=== PATIENT | male | born 1950 | race Caucasian/White ===

== ENCOUNTER 2018-01-26 10:37 | Outpatient (CLI) | payer MEDICARE ==
--- NOTE | 2018-01-26 12:26 | RAD ---
PA AND LATERAL CHEST: Date: 01/26/18 COMPARISON: 11/24/16 study. FINDINGS: Heart size within normal limits. COPD type changes are again demonstrated. Nodular densities in both upper lobes are stable. IMPRESSION: Stable exam. POS: [facility]
== END 2018-01-26 10:38 | disposition home or self-care (01) ==
LOC: RAD 10:37
PROVIDERS: ATTEND Internal Medicine Pulmonary Disease
DX: R06.00 Dyspnea, unspecified (principal)
CPT/HCPCS: 71046

== ENCOUNTER 2018-08-28 00:47 | Observation (INO) | payer MEDICARE ==
[2018-08-28] MEDS ORDERED: methylPREDNISolone Sod Succ/PF 125 MG/2 ML VIAL ONE (01:41)
[2018-08-28] MEDS ORDERED: Sodium Chloride 0.9% 1,000 ML IV SCH ×2 (03:26→06:15)
[2018-08-28] MEDS ORDERED: Bacteriostatic Water 30 ML VIAL FS PRN (03:28)
[2018-08-28 03:38] VITALS: BMI 17.9
[2018-08-28] MEDS ORDERED: Ondansetron PF 4 MG/2 ML Vial IVP PRN (06:06)
[2018-08-28] MEDS ORDERED: Ondansetron ODT 4 MG TAB PO PRN (06:06)
[2018-08-28] MEDS ORDERED: [UNRECOGNIZED DRUG - REMARK] PO PRN (06:06)
[2018-08-28] MEDS ORDERED: Calcium Carbonate 500 MG ChewTAB PO PRN (06:06)
[2018-08-28] MEDS ORDERED: diphenhydrAMINE 25 MG CAP PO PRN (06:12)
--- NOTE | 2018-08-28 06:49 | HP ---
PRIMARY CARE PHYSICIAN: Dr. Ochoa. CHIEF COMPLAINT: Shortness of breath. HISTORY OF PRESENT ILLNESS: The patient is a 67-year-old male with COPD, presented to the emergency room with above complaints. Over the last 1 week, the patient developed gradually worsening shortness of breath along with chest tightness and wheezing. His symptoms progressively got worse. The shortness of breath was present on minimal exertion. The cough was productive of thick whitish phlegm. He denies any fever, chills, or night sweats. He follows with Dr. Rm at [facility]. He was evaluated by Dr. Ochoa 2 days ago and was started on Levaquin along with Mucinex without much relief. He then presented to the emergency room today. In the emergency room, his initial vital signs showed temperature of 98.7, respiration of 20, pulse rate of 88, blood pressure of 145/86 with O2 saturation of 91% on room air. He was in mild respiratory distress in the emergency room, able to complete short phrases. He was started on O2 supplementation. His chest x-ray in the emergency room showed increased bronchopulmonary marking at the right base. He received 2 g magnesium, albuterol, Rocephin, Toradol, IV fluid, and DuoNebs in the emergency room at [facility]. He was then transferred to this facility for hospital admission. PAST MEDICAL HISTORY: 1. COPD. 2. 40 pack-year smoking history, he quit in 2012. 3. He has been hospitalized in the past for pneumonia. 4. Benign prostatic hypertrophy. 5. Hyperlipidemia. PAST SURGICAL HISTORY: Reviewed with the patient and none. ALLERGIES: NO KNOWN DRUG ALLERGIES. CURRENT HOME MEDICATION: 1. Albuterol nebulization twice a day. 2. Symbicort 160/4.5 one puff b.i.d. 3. Benadryl 25 mg twice a day. 4. Mucinex daily. 5. Zocor 5 mg at bedtime. 6. Flomax 0.4 mg daily. 7. Spiriva 18 mcg daily. SOCIAL HISTORY: As discussed above. He drinks alcohol socially. Denies any drug abuse. He makes his own decision with the help of his family. He is full code. FAMILY HISTORY: Mother of some lung problems. Father diagnosed with a cancer. Details unavailable. REVIEW OF SYSTEMS: The patient denies any other new complaints. All other review of systems were reviewed and were found negative. PHYSICAL EXAMINATION: VITAL SIGNS: As discussed above. GENERAL: A 67-year-old male in mild respiratory distress, able to complete short phrases. HEENT: Head; atraumatic, normocephalic. Sclerae anicteric. Moist mucous membrane. No oral lesion. NECK: Supple. No JVD appreciated. No carotid bruit. LUNGS: Showed minimal accessory muscle use with bilateral rhonchi and scattered wheezing. There were few rales at right bases. HEART: S1 and S2 present. Regular rate and rhythm. No heaves or pulsation. No significant murmurs appreciated. ABDOMEN: Soft, nontender. Bowel sounds present. No rebound or guarding. EXTREMITIES: No edema or calf tenderness. NEUROLOGY: Grossly nonfocal. Moves all 4 extremities. PSYCHIATRY: Alert, awake, oriented x3. SKIN: Warm and dry. LYMPH NODES: No palpable lymph nodes in the neck. PERIPHERAL VASCULAR: Radial pulses palpable bilaterally. MUSCULOSKELETAL: No joint swelling or tenderness. LABORATORY FINDINGS: WBC 11.2, hemoglobin 14.4, hematocrit 43.3, platelet 187. Chemistry showed sodium 131, potassium 4.2, chloride 97, bicarb 24, BUN 9, creatinine 0.78. Troponin was negative. BNP 40.3. Lactic acid 1.5. IMAGING STUDIES: Chest x-ray by my review as discussed above. IMPRESSION: 1. Chronic obstructive pulmonary disease exacerbation. 2. Hyponatremia, sodium 131. 3. Benign prostatic hypertrophy. 4. Former smoker. The patient has 40-pack year smoking history. 5. Hyperlipidemia. PLAN: The patient will be monitored as a 23-hour observation. We will continue nebulizer treatment every 4 hourly. We will add IV steroids. We will continue ceftriaxone. We will add azithromycin. Continue Symbicort and Spiriva. We will resume Flomax and statins. We will recheck labs in a.m. Plan of care was discussed with the patient in detail, he stated understanding. Job ID: [id number]
[2018-08-28] MEDS: Mometasone/Formoterol 120 PUFF INHALER INH SCH ×2 (07:36→19:03)
[2018-08-28] MEDS: Cefdinir 300 MG CAP PO SCH ×2 (07:58→20:05)
[2018-08-28] MEDS: methylPREDNISolone Sod Succ/PF 125 MG/2 ML VIAL IVP SCH ×3 (07:58→20:04)
[2018-08-28] MEDS: Tamsulosin HCl 0.4 MG CAP PO SCH (07:59)
[2018-08-28] MEDS: Saccharomyces boulardii 250 MG CAP PO SCH (07:59)
[2018-08-28] MEDS: guaiFENesin ER 600 MG TAB PO SCH ×2 (07:59→20:05)
[2018-08-28] MEDS: Famotidine 20 MG TAB PO SCH ×2 (07:59→20:05)
[2018-08-28] MEDS: Doxycycline 100 MG CAP PO SCH ×2 (07:59→20:05)
[2018-08-28] MEDS ORDERED: methylPREDNISolone Sod Succ/PF 125 MG/2 ML VIAL IVP SCH (08:00)
[2018-08-28] MEDS ORDERED: Spiriva 18 MCG CAP (Box of 5 Caps) INH SCH (09:00)
[2018-08-28] MEDS ORDERED: Non-Formulary Item 1 EACH (Budesonide-Formoterol [Symbicort 160-4.5] 1 PUFF) INH SCH (09:00)
--- NOTE | 2018-08-28 14:17 | PDOC.EVN ---
Event Note - Event Note Event Note: Pt seen and examined. Chart reviewed. feels a little bettter in terms of breathing. minimal wheezing on exam RRR reports daily symptoms that are not controlled by Nebs every 6 hrs among other meds Radiologic Technology Instructor is Dr. Rm at [facility]. Will cont Rx for Ac COPD for now as mentioned in H&P. Pt encouraged to discuss advanced treatments including biologics with his PCCM for poorly controlled symptoms. HD stable Will follow. Betty Eduardo in next 24 hours if better
[2018-08-28] MEDS ORDERED: Nicotine 14 MG PATCH TOP SCH (18:30)
[2018-08-28] MEDS ORDERED: traZODone HCl 50 MG TAB PO PRN (18:53)
[2018-08-28] MEDS ORDERED: Melatonin 3 MG TAB PO PRN (18:53)
[2018-08-28] MEDS ORDERED: Simvastatin 5 MG TAB PO SCH (21:00)
[2018-08-29] MEDS: methylPREDNISolone Sod Succ/PF 125 MG/2 ML VIAL IVP SCH ×2 (00:58→08:36)
[2018-08-29 03:56] VITALS: TEMP 97.5
[2018-08-29 06:29] LABS: #Lymphocytes 0.7 thou/uL (1.20-3.40); #Monocytes 0.3 thou/uL (0.11-0.59); %Basophils 0.1 % (0.0-1.0); %Eosinophils 0.1 % (0.0-10.0); %Monocytes 3.1 % (0.0-10.0); %Neutrophils 89.8 % (42.0-75.0); Hemoglobin 13.4 g/dL (14.0-18.0); Mean Corpuscular HGB CONC 33.3 g/dL (32.0-36.0); Mean Corpuscular Hemoglobin 33.4 pg (27.0-31.0); Platelet Count 219 thou/uL (130-400); RBC Distribution Width 11.2 % (11.5-14.5); Red Blood Cell (RBC) Count 4.03 mill/uL (4.70-6.10); White Blood Cell (WBC) Count 10.1 thou/uL (4.8-10.8)
[2018-08-29 06:47] LABS: Anion Gap 13 mmol/L (10-20); BUN (Urea Nitrogen) 10 mg/dL (8.4-25.7); Calc. Creatinine Clearance 80 mL/min (70-130); Calcium 8.8 mg/dL (7.8-10.44); Carbon Dioxide 25 mmol/L (23-31); Chloride 102 mmol/L (98-107); Estimated GFR-MDRD Greater than 90; Glucose 150 mg/dL (80-115); Potassium 3.9 mmol/L (3.5-5.1); Sodium 136 mmol/L (136-145)
[2018-08-29] MEDS: Mometasone/Formoterol 120 PUFF INHALER INH SCH (06:56)
[2018-08-29 07:59] VITALS: BP 124/74
[2018-08-29] MEDS: Cefdinir 300 MG CAP PO SCH (08:35)
[2018-08-29] MEDS: Tamsulosin HCl 0.4 MG CAP PO SCH (08:36)
[2018-08-29] MEDS: guaiFENesin ER 600 MG TAB PO SCH (08:36)
[2018-08-29] MEDS: Saccharomyces boulardii 250 MG CAP PO SCH (08:36)
[2018-08-29] MEDS: Famotidine 20 MG TAB PO SCH (08:36)
[2018-08-29] MEDS: Doxycycline 100 MG CAP PO SCH (08:36)
--- NOTE | 2018-08-29 17:17 | DIS ---
DATE OF ADMISSION: 08/28/2018 DATE OF DISCHARGE: 08/29/2018 DISCHARGE DISPOSITION: Home. PRIMARY CARE PHYSICIAN: Dimitri Ochoa MD PRIMARY MANAGER ACADEMIC: Dr. Rm at [facility]. DISCHARGE DIAGNOSES: 1. Acute chronic obstructive pulmonary disease exacerbation with bronchitis. 2. Longstanding history of tobacco abuse. Quit in 2012. 3. History of benign prostatic hyperplasia. 4. Dyslipidemia. DISCHARGE MEDICATIONS: Resume home medications as per the HPI. Please see HPI dictated by Dr. Cano on 08/28/2018. No changes were made in the home medications. In the medication, new medications as follows; 1. Nicotine patch 14 mg daily. 2. Florastor 250 mg daily. 3. Medrol Dosepak as directed. 4. Mucinex p.r.n. 5. The patient will resume the levofloxacin as prescribed by Dr. Ochoa in the outpatient setting at 750 mg p.o. daily for next 5 days. HISTORY OF PRESENTING ILLNESS: Mr. Ca is a pleasant 67-year-old male with past medical history of severe COPD, but not requiring home oxygen as well as history of BPH and hypertension, who follows up with Dr. Rm in the outpatient setting for pulmonary Medicine, came to the hospital with complaints of worsening shortness of breath. Upon presentation, he was not hypoxic. His oxygen saturations were 91% on room air. Chest x-ray did not show any evidence of pneumonia. He received magnesium, albuterol, Rocephin, Toradol, IV fluids, and nebulizer in the [facility] and was transferred to our facility for admission. He was diagnosed with having acute COPD exacerbation with bronchitis and was admitted under observation status. Please see admission history and physical dictated by Dr. Cano from 08/28/2018, for further details. HOSPITAL COURSE: The patient had significant improvement in his symptoms overnight. He was treated with IV steroids, empiric antibiotics, and nebulizers in the hospital along with continuation of his home medications. This morning, he is back to his baseline and will be discharged. He was seen and examined prior to discharge. PHYSICAL EXAMINATION: VITAL SIGNS: This morning, vital signs; temperature 97.5, pulse of 91, respirations 16, saturating 92% to 97% on room air, and blood pressure 127/74. CHEST: Negative for any wheezing, but he has very reduced breath sounds bilaterally consistent with severe longstanding COPD. HEART: Rhythm is regular without any murmurs, rubs, or gallops. Mr. 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 He also likes to mow his grass. He reports that sometimes he wears the mask when he is working with all of this, but he gets too hot and does not wear the mask. As a result, by the end of the morning, he is feeling very short of breath and afternoon, he has been using his nebulizers without any benefit. I educated him about the allergens making his symptoms worse and he is strongly instructed to not engage in any work involving the sawdust, welding, or grass cutting. He is to avoid all these activities that include allergens that will make his symptoms worse. If he is absolutely needing to do anything like that: He is encouraged to wear a mask. He is also encouraged to discuss newer medications or long-term steroids with his primary senior oracle soa developer, who is in the process of addressing his lung capacity and getting some outpatient workup done. He understood the plan. At this time, he will be discharged back home. He will resume his levofloxacin that was prescribed by Dr. Ochoa in the outpatient setting two days ago. Otherwise, medications as above. Job ID: [id number]
== END 2018-08-29 11:27 | disposition home or self-care (01) ==
LOC: ERS 00:47 → 2SW 03:07
PROVIDERS: ADMIT Internal Medicine; ATTEND Internal Medicine
DX: J44.1 Chronic obstructive pulmonary disease with (acute) exacerbation (principal); E87.1 Hypo-osmolality and hyponatremia; N40.0 Benign prostatic hyperplasia without lower urinary tract symptoms; E78.5 Hyperlipidemia, unspecified; Z87.891 Personal history of nicotine dependence; Z79.2 Long term (current) use of antibiotics; Z79.51 Long term (current) use of inhaled steroids; Z79.899 Other long term (current) drug therapy
CPT/HCPCS: 80048; 85025; 94640 ×5; 96361; 96374; 96376 ×2; 97139; 99285; G0378 ×2; 36415; J2930; J7620

== ENCOUNTER 2018-10-13 06:47 | Inpatient (IN) | payer MEDICARE ==
[2018-10-13 07:14] LABS: #Lymphocytes 1.2 thou/uL (1.20-3.40); #Monocytes 0.9 thou/uL (0.11-0.59); #Neutrophils 9.1 thou/uL (1.40-6.50); %Basophils 0.4 % (0.0-1.0); %Eosinophils 0.4 % (0.0-10.0); %Lymphocytes 10.4 % (21.0-51.0); %Monocytes 7.7 % (0.0-10.0); %Neutrophils 81.1 % (42.0-75.0); Hemoglobin 14.8 g/dL (14.0-18.0); Mean Corpuscular HGB CONC 33.4 g/dL (32.0-36.0); Mean Corpuscular Hemoglobin 33.6 pg (27.0-31.0); Mean Platelet Volume 6.7 fL (7.4-10.4); Platelet Count 203 thou/uL (130-400); RBC Distribution Width 11.8 % (11.5-14.5); Red Blood Cell (RBC) Count 4.39 mill/uL (4.70-6.10); White Blood Cell (WBC) Count 11.2 thou/uL (4.8-10.8)
[2018-10-13] MEDS ORDERED: methylPREDNISolone Sod Succ/PF 125 MG/2 ML VIAL ONE (07:27)
[2018-10-13 07:38] LABS: ALT (SGPT) 17 U/L (8-55); AST (SGOT) 17 U/L (5-34); Albumin 4.2 g/dL (3.4-4.8); Alkaline Phosphatase 66 U/L (40-150); Anion Gap 12 mmol/L (10-20); BUN (Urea Nitrogen) 9 mg/dL (8.4-25.7); Bilirubin, Total 0.5 mg/dL (0.2-1.2); Calc. Creatinine Clearance 0 mL/min (70-130); Calcium 9.1 mg/dL (7.8-10.44); Carbon Dioxide 27 mmol/L (23-31); Chloride 100 mmol/L (98-107); Estimated GFR-MDRD Greater than 90; Globulin 2.4 g/dL (2.4-3.5); Glucose 124 mg/dL (80-115); Potassium 4.4 mmol/L (3.5-5.1); Protein, Total 6.6 g/dL (5.8-8.1); Sodium 135 mmol/L (136-145)
[2018-10-13] MEDS ORDERED: Sodium Chloride 0.9% 1,000 ML IV SCH (07:45)
[2018-10-13 07:59] LABS: CKMB 4.5 ng/mL (0-6.6)
--- NOTE | 2018-10-13 08:16 | RAD ---
SINGLE VIEW OF THE CHEST: COMPARISON: 10/12/2018. HISTORY: Dyspnea. FINDINGS: A single view of the chest shows a normal-size cardiomediastinal silhouette. Hyperexpansion of the l ungs is consistent with COPD. A calcified granuloma projects over the left upper lobe. No consolida tion or pleural effusion are seen. IMPRESSION: 1. No evidence of acute cardiopulmonary disease. 2. Chronic obstructive pulmonary disease. POS: [facility]
[2018-10-13 10:35] LABS: Troponin I 0.195 ng/mL (< 0.028)
[2018-10-13] MEDS ORDERED: PROVENTIL INHALER 6.7 G (200 INHALATIONS) INH PRN (13:30)
[2018-10-13] MEDS ORDERED: Acetaminophen 325 MG TAB PO PRN (13:30)
[2018-10-13] MEDS ORDERED: methylPREDNISolone Sod Succ/PF 125 MG/2 ML VIAL IVPB SCH (13:45)
[2018-10-13 14:16] LABS: Troponin I 0.317 ng/mL (< 0.028)
[2018-10-13] MEDS ORDERED: Nitroglycerin 0.4 MG TAB (25 Tab Bottle) PO PRN (14:24)
[2018-10-13] MEDS ORDERED: Calcium Carbonate 500 MG ChewTAB PO PRN (14:25)
[2018-10-13] MEDS ORDERED: Ondansetron ODT 4 MG TAB PO PRN (14:25)
[2018-10-13] MEDS ORDERED: Ondansetron PF 4 MG/2 ML Vial IVP PRN (14:25)
[2018-10-13] MEDS ORDERED: Cefepime 1 GM in Sodium Chloride 0.9% 100 ML IVPB SCH (14:30)
--- NOTE | 2018-10-13 15:36 | HP ---
PRIMARY CARE PHYSICIAN: Dr. Ochoa. Primary beverage server at [facility]. CHIEF COMPLAINT: Shortness of breath. HISTORY OF PRESENT ILLNESS: The patient is a 67-year-old white male with COPD and [id number] smoking in the past, presented to the hospital with shortness of breath. Over the last 7 to 10 days, the patient developed gradual worsening shortness of breath along with chest tightness, and wheezing. He was short of breath on minimal exertion. He also had cough, which was essentially dry. No fever or chills reported. He denies any sick contacts. He was recently evaluated by his primary care physician and was started on prednisone. He was also instructed to increase the dose of prednisone if his symptoms does not improve. The patient increased his prednisone dose from 10 mg daily to 20 mg daily without significant improvement. He was also seen in the emergency room 2 days ago for similar complaints. He received 60 mg oral prednisone along with nebulizer treatment and was discharged home on prednisone taper along with azithromycin. His symptoms progressively got worse, for which he presented to the emergency room. PAST MEDICAL HISTORY: 1. COPD. 2. 75-qslk-fozb smoking. The patient quit smoking in 2004. 3. History of pneumonia. 4. Benign prostatic hypertrophy. 5. Hyperlipidemia. PAST SURGICAL HISTORY: Reviewed with the patient and none. ALLERGIES: NO KNOWN DRUG ALLERGIES. CURRENT HOME MEDICATIONS: 1. Flomax 0.4 mg q.h.s. 2. Spiriva 2.5 mcg daily. 3. Zocor 20 mg q.h.s. 4. Prednisone taper. 5. Mucinex q.h.s. 6. Benadryl 25 mg b.i.d. 7. Symbicort 160/4.5 b.i.d. 8. Albuterol as needed. SOCIAL HISTORY: The patient is a former smoker, quit smoking in 2012. He used to smoke 1 to 2 packs in the past. He drinks alcohol socially. He makes his own decision with the help of his spouse. He is full code. FAMILY HISTORY: Mother of some lung problem. Father also diagnosed with some kind of malignancy. REVIEW OF SYSTEMS: The patient denies any nausea, vomiting, fever, or chills. All other review of systems was reviewed and was found negative. PHYSICAL EXAMINATION: VITAL SIGNS: Temperature 97.9, respirations of 20, pulse rate of 137, blood pressure of 160/117 with O2 saturation of 93% on room air. GENERAL: A 67-year-old man, in mild respiratory distress, able to complete short phrases. HEENT: Head; atraumatic, normocephalic. Sclerae anicteric. Dry mucous membranes. No oral lesion. NECK: Supple. No JVD. No carotid bruit. LUNGS: Show mild expiratory wheezing without significant rhonchi or rales. Mild accessory muscle use. HEART: S1 and S2 present. Regular rate and rhythm. No heaves or pulsation. No significant murmurs. ABDOMEN: Soft, nontender. Bowel sounds present. No rebound or guarding. EXTREMITIES: No edema or calf tenderness. NEUROLOGIC: Grossly nonfocal. Moves all 4 extremities. PSYCHIATRY: Alert, awake, oriented x3. SKIN: Warm and dry. LYMPH NODES: No palpable lymph nodes in the neck. PERIPHERAL VASCULAR: Radial pulses palpable bilaterally. MUSCULOSKELETAL: No joint swelling or tenderness. LABORATORY FINDINGS: WBC of 11.2 with hemoglobin 14.8, hematocrit 44.3, platelet count of 203. VBG showed pH of 7.43 with pO2 of 88.1, pCO2 of 38.4. Troponin of 0.31. Sodium 135, creatinine 0.72 with BUN of 9. BNP was 39.4. IMAGING STUDIES: Chest x-ray by my review was negative for infiltrate. EKG by my review showed sinus tachycardia with PVCs. IMPRESSION: 1. Acute hypoxic respiratory failure secondary to chronic obstructive pulmonary disease exacerbation. 2. Former smoker. 3. Benign prostatic hypertrophy. 4. Hyperlipidemia. 5. Macrocytosis. 6. Type 2 myocardial infarction/demand ischemia. 7. Mild hyponatremia. PLAN: The patient will be monitored on the telemetry unit. We will continue O2 supplementation along with steroids. We will add IV cefepime along with azithromycin. Echocardiogram will be obtained for elevated troponins. He probably has demand ischemia from hypoxemia along with significant tachycardia. Selected medications will be resumed. We will recheck troponin in a.m. Echocardiogram will be obtained. We will get input from Cardiology and Pulmonology. Recheck a.m. labs. Plan of care was discussed with the patient in detail. He stated understanding. Job ID: [id number]
[2018-10-13] MEDS ORDERED: Diabetic Tussin 200 MG/10 ML UDCUP PO PRN (16:00)
[2018-10-13] MEDS ORDERED: Furosemide 20 MG/2 ML VIAL SLOW IVP SCH (16:00)
[2018-10-13] MEDS ORDERED: methylPREDNISolone Sod Succ 40 MG VIAL IVP SCH ×2 (16:00→20:00)
[2018-10-13] MEDS: Azithromycin 500 MG in Sodium Chloride 0.9% 250 ML 250 ML IVPB SCH (17:39)
[2018-10-13] MEDS ORDERED: Mometasone/Formoterol 120 PUFF INHALER INH SCH (18:30)
--- NOTE | 2018-10-13 18:38 | CON ---
DATE OF CONSULTATION: 10/13/2018 REASON FOR CONSULTATION: Elevated troponins. HISTORY OF PRESENT ILLNESS: Mr. Ca is a very pleasant 67-year-old white gentleman, who comes to the hospital for shortness of breath. He has a history of significantly advanced COPD. He was in the hospital about a month ago for COPD exacerbation. He started feeling short of breath about 2 days ago, came into the ER, was given azithromycin and prednisone, but it did not improve his symptoms, so he came back and was admitted for further evaluation. He has been started on pulmonary toilet including higher dose steroids and IV antibiotics. Troponins were drawn, they were mildly positive, so Cardiology has been consulted for this. On my evaluation, Mr. Ca denies any chest pain, tightness, or pressure. He states that he has been coughing a lot more recently like he usually does when he gets an exacerbation. He also gets some tightness every time he gets a COPD exacerbation and this time it has been no different. PAST MEDICAL HISTORY: 1. COPD as above. 2. Multiple pneumonias in the past. 3. BPH. 4. Hyperlipidemia. SURGICAL HISTORY: None. OUTPATIENT MEDICATIONS: 1. Flomax 0.4 mg q.h.s. 2. Spiriva. 3. Zocor 20 mg q.h.s. 4. Prednisone taper in the past. 5. Mucinex. 6. Benadryl. 7. Symbicort. 8. Albuterol as needed. ALLERGIES: NO KNOWN DRUG ALLERGIES. SOCIAL HISTORY: Quit smoking in 2012, two packs a day before that. Social alcohol use. No drug use. FAMILY HISTORY: No early coronary artery disease. REVIEW OF SYSTEMS: A 12-point review of systems was done and was all negative unless stated in history of present illness. PHYSICAL EXAMINATION: VITAL SIGNS: Temperature 97.6, pulse 94, respiratory rate 16, saturating 96% on 1 L, and blood pressure 119/84. GENERAL: Awake, alert, and oriented x3. No distress. HEENT: Normocephalic and atraumatic. NECK: Supple. LUNGS: Reduced breath sounds bilaterally. CARDIOVASCULAR: Distant heart sounds, S1 and S2. There is a grade 2/6 systolic murmur at the right upper sternal border. ABDOMEN: Soft. EXTREMITIES: No edema. SKIN: Warm and dry. LABORATORY DATA: Laboratory work was reviewed. CBC with a white count of 11, hemoglobin of 14, hematocrit of 44, platelet count of 203. Chemistry was reviewed, unremarkable. Troponin is 0.03, then 0.19, and 0.31. BNP was 61. EKG was reviewed. Chest x-ray was reviewed. ASSESSMENT AND PLAN: 1. Chronic obstructive pulmonary disease with acute exacerbation. 2. Type 2 World Health [employer] type of myocardial infarction, demand ischemia most likely. PLAN: 1. We will do echocardiogram. 2. We will continue to trend troponins. 3. Currently, he is unable to lie flat, so even if we wanted to do a heart catheterization or even a stress test, he would be unable to as he is chronically short of breath every time he lies down. At this time, we will do conservative management for now. 4. Most likely he will need home O2 when he leaves. Thank you for letting me participate in the care of your patient. We will follow. Job ID: [id number]
[2018-10-13] MEDS ORDERED: Senokot S 8.6-50 MG TAB PO PRN (21:00)
[2018-10-13] MEDS ORDERED: Non-Formulary Item 1 EACH (Budesonide-Formoterol [Symbicort 160-4.5] 1 PUFF) INH SCH (21:00)
[2018-10-13] MEDS ORDERED: [UNRECOGNIZED DRUG - REMARK] PO SCH (21:00)
[2018-10-13] MEDS: Tamsulosin HCl 0.4 MG CAP PO SCH (21:02)
[2018-10-13] MEDS: Famotidine 20 MG TAB PO SCH (21:02)
[2018-10-13] MEDS: guaiFENesin ER 600 MG TAB PO SCH (21:02)
[2018-10-13] MEDS: Atorvastatin Calcium 10 MG TAB PO SCH (21:03)
[2018-10-13] MEDS: diphenhydrAMINE 25 MG CAP PO PRN (21:06)
[2018-10-13] MEDS: ALPRAZolam 0.25 MG TAB PO PRN (21:06)
[2018-10-14] MEDS: methylPREDNISolone Sod Succ 40 MG VIAL IVP SCH ×2 (02:17→13:34)
[2018-10-14 05:04] LABS: Anion Gap 15 mmol/L (10-20); BUN (Urea Nitrogen) 12 mg/dL (8.4-25.7); Calc. Creatinine Clearance 82 mL/min (70-130); Calcium 8.7 mg/dL (7.8-10.44); Carbon Dioxide 25 mmol/L (23-31); Chloride 99 mmol/L (98-107); Estimated GFR-MDRD Greater than 90; Glucose 122 mg/dL (80-115); Magnesium 2.4 mg/dL (1.6-2.6); Potassium 3.7 mmol/L (3.5-5.1); Sodium 135 mmol/L (136-145)
[2018-10-14 05:34] LABS: CKMB 10.3 ng/mL (0-6.6)
[2018-10-14] MEDS ORDERED: Spiriva 18 MCG CAP (Box of 5 Caps) INH SCH (09:00)
[2018-10-14] MEDS ORDERED: Furosemide 20 MG/2 ML VIAL SLOW IVP SCH (09:00)
[2018-10-14] MEDS: Saccharomyces boulardii 250 MG CAP PO SCH (09:20)
[2018-10-14] MEDS: Aspirin 325 mg Enteric Coated Tablet PO SCH (09:20)
[2018-10-14] MEDS: Famotidine 20 MG TAB PO SCH ×2 (09:21→20:04)
[2018-10-14] MEDS: guaiFENesin ER 600 MG TAB PO SCH ×2 (09:21→20:04)
--- NOTE | 2018-10-14 11:33 | CON ---
DATE OF CONSULTATION: 10/13/2018 SERVICE: Pulmonary Medicine. REASON FOR CONSULT: COPD exacerbation. HISTORY OF PRESENT ILLNESS: The patient is a very pleasant 67-year-old white male with past medical history significant for very advanced COPD. He has a 25% FEV1 at baseline. He was in his usual state of health until about 1 week prior to presentation when he started having increasing dyspnea with exertion, cough without any significant sputum production. This was slowly progressive over the last week. Last night at 3 o'clock in the morning, he woke up with severe shortness of breath. He could not catch his air and subsequently came to the Emergency Department. Over the last couple of days, he was put on some steroids, but they were ineffective at preventing this exacerbation from occurring. Since he has been here, he got a dose of steroids, nebulized medications, and was initiated on some antibiotics. He is starting to breathe a little bit better. He does not use oxygen at home, but is like getting close to needing it. He is requiring oxygen at this point, because of acute hypoxic failure. PAST MEDICAL HISTORY: 1. COPD, severe. 2. BPH. 3. Dyslipidemia. PAST SURGICAL HISTORY: None. SOCIAL HISTORY: Negative currently for tobacco, alcohol, or illicit drug use. He has a greater than 50-pack year history of smoking. 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 He also had exposure to multiple different types of dust as well as asbestos. He has no exposure to tuberculosis or chemicals that he is aware of. FAMILY HISTORY: Noncontributory. ALLERGIES: NO KNOWN DRUG ALLERGIES. MEDICATIONS: List of his inpatient medications was reviewed. Multiple updates were made at this time. REVIEW OF SYSTEMS: Genera, head, ears, eyes, nose, throat, cardiovascular, respiratory, GI, , musculoskeletal, neurologic, and skin is negative except as mentioned in the HPI. PHYSICAL EXAMINATION: VITAL SIGNS: Afebrile, pulse 94, blood pressure 111/74, respirations 15, and saturation 98% on 1 L nasal cannula. GENERAL: The patient is awake and alert, in no apparent distress. LUNGS: Excellent air entry. There is a prolonged expiratory phase. I do not appreciate any wheezing on tidal respiration, but there is some wheezing on forced exhalation. Crackles are present bibasilarly. HEART: Normal rate, regular. ABDOMEN: Soft, nontender, nondistended. Bowel sounds are positive. MUSCULOSKELETAL: No cyanosis or clubbing. No pitting in the bilateral lower extremities. NEUROLOGIC: Grossly nonfocal. LABORATORY DATA: WBC 11.2, hemoglobin 14.3 and stable, platelets 203,000. PH 7.4, pCO2 38, pO2 88. Troponin is up trending to 0.317. Basic metabolic profile and liver function studies are otherwise unremarkable. BNP 62. IMAGING: Chest x-ray demonstrates no acute cardiopulmonary abnormality. Significant hyperexpansion of bilateral lung martinez is evident. ASSESSMENT: 1. Acute hypoxic respiratory failure. 2. Chronic obstructive pulmonary disease with acute exacerbation. 3. Mej-OG-egusriwsc myocardial infarction. 4. Obstructive sleep apnea, requiring continuous positive airway pressure at 11 cm of water. DISCUSSION AND PLAN: The patient is doing fine from a respiratory standpoint. We will continue nebulized medications, steroids, and antibiotics. I will give him a single dose of Lasix today and tomorrow morning as he is minimally volume overloaded clinically. Agree with Cardiology consultation for the non ST-elevation myocardial infarction. The COPD exacerbation is relatively mild and I would be surprised, if this degree of respiratory failure puts a significant degree of stress on the heart to cause a demand ischemia. Methylprednisolone will be dropped to twice daily. Other inhalers and nebulized medications will be continued. Cefepime will be interrupted. He can have a 5-day course of azithromycin. 70 minutes have been devoted to this patient in various activities. I personally reviewed all imaging studies and laboratory data noted within this document. For fifty percent of this time, I was interacting with the patient at the bedside or coordinating care with the care team. For the remainder of the time I was immediately available to the patient in the hospital unit. Job ID: [id number] MTDD
--- NOTE | 2018-10-14 11:35 | PRG ---
DATE OF SERVICE: 10/14/2018 SUBJECTIVE: He is doing better this morning, less short of breath, less cough. OBJECTIVE: VITAL SIGNS: Sats are 99% on 1 L, respiratory rate 14, temperature 97, and blood pressure 111/67. CHEST: Decreased breath sounds. No wheezing. CARDIAC: Normal S1 and S2. No gallops. ABDOMEN: Soft. IMPRESSION: Chronic obstructive pulmonary disease exacerbation and bronchitis. PLAN: Continue present treatment. PT, supportive care, antibiotics. We will follow. Job ID: [id number]
[2018-10-14] MEDS: Azithromycin 500 MG in Sodium Chloride 0.9% 250 ML 250 ML IVPB SCH (16:01)
--- NOTE | 2018-10-14 18:57 | PDOC.CTH ---
Cardiology Progress Note - Subjective Breathing is better. No chest pain. - Objective Vital Signs Temp Pulse Resp BP Pulse Ox 10/14/18 15:57 97.7 F 100 16 123/71 95 10/14/18 14:45 88 16 95 10/14/18 11:57 97.5 F L 92 14 109/67 95 10/14/18 10:47 93 20 95 10/14/18 08:00 94 L 10/14/18 07:45 97.6 F 94 14 111/67 99 10/14/18 07:29 98 10/14/18 07:27 95 20 98 Admit Weight 125 lb 4.8 oz Weight 125 lb 4.8 oz 10/13/18 10/14/18 10/15/18 06:59 06:59 06:59 Intake Total 560 Output Total 1725 Balance -1165 - Physical Examination General/Neuro: alert & oriented x3, NAD Neck: no JVD present Lungs: unlabored respirations Heart: RRR Abdomen: NT/ND Extremities: other: (no edema) - Telemetry Telemetry Rhythm: NSR - Labs Result Diagrams: 10/13/18 07:05 10/14/18 04:05 Troponin/CKMB CK-MB (CK-2) 10.3 ng/mL (0-6.6) H* 10/14/18 04:05 Troponin I 0.341 ng/mL (< 0.028) H* 10/14/18 04:05 - Assessment/Plan 1. COPD with acute exacerbation. 2. NSTEMI, possible type 2 AK. 3. Bronchitis. 4. Mild LV dysfunction PLAN: - Continue conservative therapy for now. He is not having chest pain and symptoms improving with pulmonary therapies. - EF at 45-50%, images not great on echo. - Currently unable to lay lower than 45 degrees without SOB. He states he is almost never able to lay flat on his back due to SOB so he would not be able to tolerate any invasive cardiac interventions. - No BB due to COPD. - BP borderline low to add ACEI.
--- NOTE | 2018-10-14 19:18 | PDOC.PN ---
- Subjective Encounter Start Date: 10/14/18 Encounter Start Time: 19:18 Patient seen and examined for COPD flare with Type 2 CO. No CP. SOB improving. Dry cough +. No other complaints. No overnight events - Objective Resuscitation Status - Order Detail: 10/13/18 14:25 Resuscitation Status Routine Resuscitation Status: FULL: Full Resuscitation MAR Reviewed: Yes Vital Signs & Weight: Vital Signs (12 hours) Temp Pulse Resp BP Pulse Ox 10/14/18 15:57 97.7 F 100 16 123/71 95 10/14/18 14:45 88 16 95 10/14/18 11:57 97.5 F L 92 14 109/67 95 10/14/18 10:47 93 20 95 10/14/18 08:00 94 L 10/14/18 07:45 97.6 F 94 14 111/67 99 10/14/18 07:29 98 10/14/18 07:27 95 20 98 Weight Admit Weight 125 lb 4.8 oz Weight 125 lb 4.8 oz I&O: 10/13/18 10/14/18 10/15/18 06:59 06:59 06:59 Intake Total 560 Output Total 1725 Balance -1165 Result Diagrams: 10/13/18 07:05 10/14/18 04:05 EKG Reviewed by me: Yes (Tele SR) Phys Exam - Physical Examination Pt in mild resp distress Respiratory: wheezing present Scat rhonchi Cardiovascular: RRR, no rub Gastrointestinal: soft, non-tender, positive bowel sounds Musculoskeletal: no edema Neurological: moves all 4 limbs Dx/Plan - Plan DVT proph w/SCDs (Patient declined Lovenox) IMPRESSION: 1. Acute hypoxic respiratory failure secondary to COPD exacerbation. 2. Type 2 myocardial infarction/demand ischemia. 3. Benign prostatic hypertrophy. 4. Hyperlipidemia. 5. Macrocytosis. 6. Former smoker. 7. Mild hyponatremia. PLAN: Cont Nebs with O2 supp Cont Azithromycin Cont IV Steroids On ASA Echo reviewed - EF 45-50 with diastolic dysfunction Treat constipation Review of Systems - Review of Systems Cardiovascular: negative: chest pain, palpitations, orthopnea, paroxysmal nocturnal dyspnea, edema, light headedness, other Gastrointestinal: Constipation. negative: Nausea, Vomiting, Abdominal Pain, Diarrhea, Melena, Hematochezia, Other - Medications/Allergies Allergies/Adverse Reactions: Allergies Allergy/AdvReac Type Severity Reaction Status Date / Time No Known Drug Allergies Allergy Verified 10/13/18 11:59 Medications: Current Medications Acetaminophen (Tylenol) 650 mg PO Q4H PRN PRN Reason: Headache/Fever or Mild Pain Albuterol Sulfate (Proventil Hfa) 2 puff INH Q2H PRN PRN Reason: SOB &/or Wheezing Albuterol/Ipratropium (Duoneb) 3 ml NEB [id number] [facility] Last Admin: 10/14/18 14:45 Dose: 3 ml Alprazolam (Xanax) 0.25 mg PO BIDPRN PRN PRN Reason: Anxiety Last Admin: 10/13/18 21:06 Dose: 0.25 mg Aspirin (Ecotrin) 325 mg PO DAILY [facility] Last Admin: 10/14/18 09:20 Dose: 325 mg Atorvastatin Calcium (Lipitor) 10 mg PO HS [facility] Last Admin: 10/13/18 21:03 Dose: 10 mg Calcium Carbonate (Tums) 1,000 mg PO Q4H PRN PRN Reason: Heartburn or Indigestion Diphenhydramine HCl (Benadryl) 25 mg PO Q6H PRN PRN Reason: Itching & Insomnia Last Admin: 10/13/18 21:06 Dose: 25 mg Famotidine (Pepcid) 20 mg PO BID [facility] Last Admin: 10/14/18 09:21 Dose: 20 mg Guaifenesin (Mucinex) 600 mg PO Q12HR [facility] Last Admin: 10/14/18 09:21 Dose: 600 mg Guaifenesin (Robitussin Sf) 200 mg PO Q4H PRN PRN Reason: Cough Azithromycin 500 mg/ Sodium (Chloride) 250 mls @ 250 mls/hr IVPB Q24HR [facility] Last Admin: 10/14/18 16:01 Dose: 250 mls Methylprednisolone Sodium Succinate (Solu-Medrol) 40 mg IVP 0200,1400 [facility] Last Admin: 10/14/18 13:34 Dose: 40 mg Nitroglycerin (Nitrostat) 0.4 mg PO Q5MIN PRN PRN Reason: Chest Pain Ondansetron HCl (Zofran Odt) 4 mg PO Q6H PRN PRN Reason: Nausea/Vomiting Ondansetron HCl (Zofran) 4 mg IVP Q6H PRN PRN Reason: Nausea/Vomiting Saccharomyces Boulardii (Florastor) 250 mg PO DAILY [facility] Last Admin: 10/14/18 09:20 Dose: 250 mg Senna/Docusate Sodium (Senokot S) 2 tab PO BID PRN PRN Reason: Constipation Sodium Chloride (Flush - Normal Saline) 10 ml IVF PRN PRN PRN Reason: Saline Flush Tamsulosin HCl (Flomax) 0.4 mg PO [facility] Last Admin: 10/13/18 21:02 Dose: 0.4 mg
[2018-10-14] MEDS: Atorvastatin Calcium 10 MG TAB PO SCH (20:04)
[2018-10-14] MEDS: ALPRAZolam 0.25 MG TAB PO PRN (20:04)
[2018-10-14] MEDS: diphenhydrAMINE 25 MG CAP PO PRN (20:04)
[2018-10-14] MEDS: Tamsulosin HCl 0.4 MG CAP PO SCH (20:04)
[2018-10-15] MEDS: methylPREDNISolone Sod Succ 40 MG VIAL IVP SCH (01:41)
[2018-10-15] MEDS: Aspirin 325 mg Enteric Coated Tablet PO SCH (09:19)
[2018-10-15] MEDS: Famotidine 20 MG TAB PO SCH ×2 (09:19→20:42)
[2018-10-15] MEDS: Saccharomyces boulardii 250 MG CAP PO SCH (09:19)
[2018-10-15] MEDS: Polyethylene Glycol 3350 17 GM Packet PO SCH (09:19)
[2018-10-15] MEDS: guaiFENesin ER 600 MG TAB PO SCH ×2 (09:19→20:41)
--- NOTE | 2018-10-15 09:49 | PRG ---
DATE OF SERVICE: 10/15/2018 SUBJECTIVE: This morning, he is better, less short of breath. OBJECTIVE: VITAL SIGNS: His sats are 95% on 1.5 L, respirations 16, temperature 97, blood pressure 128/82. CHEST: Decreased breath sounds. No wheezing. CARDIAC: Normal S1 and S2. No gallops. ABDOMEN: No masses. IMPRESSION: 1. End-stage chronic obstructive pulmonary disease, respiratory failure, bronchitis. 2. Non ST-segment myocardial infarction, mild left ventricular dysfunction. PLAN: Disposition as per Cardiology. I am going to switch him over to oral antibiotics, oral prednisone. He can follow up with his Sinan and Marisela physician at a later time. Job ID: [id number]
--- NOTE | 2018-10-15 16:43 | PDOC.PN ---
- Subjective Encounter Start Date: 10/15/18 Encounter Start Time: 15:00 Patient seen and examined for Resp failure. SOB improving. Productive cough +. No new complaints. No overnight events - Objective Resuscitation Status - Order Detail: 10/13/18 14:25 Resuscitation Status Routine Resuscitation Status: FULL: Full Resuscitation MAR Reviewed: Yes Vital Signs & Weight: Vital Signs (12 hours) Temp Pulse Resp BP Pulse Ox 10/15/18 15:41 97.9 F 105 H 20 130/78 92 L 10/15/18 14:51 93 16 94 L 10/15/18 12:33 98.3 F 101 H 19 124/77 96 10/15/18 10:40 98 16 92 L 10/15/18 07:36 94 L 10/15/18 07:35 89 16 94 L 10/15/18 07:25 97.9 F 84 16 126/82 95 Weight Admit Weight 125 lb 4.8 oz Weight 127 lb 4.8 oz I&O: 10/14/18 10/15/18 10/16/18 06:59 06:59 06:59 Intake Total 560 840 Output Total 1725 950 Balance -1165 -110 Result Diagrams: 10/13/18 07:05 10/14/18 04:05 EKG Reviewed by me: Yes (Tele SR) Phys Exam - Physical Examination Constitutional: NAD Respiratory: no rales, wheezing present (scat) Cardiovascular: RRR, no rub Gastrointestinal: soft, non-tender, positive bowel sounds Musculoskeletal: no edema Neurological: moves all 4 limbs Dx/Plan - Plan DVT proph w/SCDs IMPRESSION: 1. Acute hypoxic respiratory failure secondary to COPD exacerbation. 2. Type 2 myocardial infarction/demand ischemia. 3. Benign prostatic hypertrophy. 4. Hyperlipidemia. 5. Macrocytosis. 6. Former smoker. 7. Mild hyponatremia. PLAN: Steroids and Atbx changed to PO Cont Nebs /O2 supp On ASA Home O2 eval in AM DC in 24 hr if stable Review of Systems - Review of Systems Respiratory: SOB with Excertion. negative: Cough, Dry, Shortness of Breath, Hemoptysis, Pleuritic Pain, Sputum, Wheezing Cardiovascular: negative: chest pain, palpitations, orthopnea, paroxysmal nocturnal dyspnea, edema, light headedness, other Gastrointestinal: negative: Nausea, Vomiting, Abdominal Pain, Diarrhea, Constipation, Melena, Hematochezia, Other - Medications/Allergies Allergies/Adverse Reactions: Allergies Allergy/AdvReac Type Severity Reaction Status Date / Time No Known Drug Allergies Allergy Verified 10/13/18 11:59 Medications: Current Medications Acetaminophen (Tylenol) 650 mg PO Q4H PRN PRN Reason: Headache/Fever or Mild Pain Albuterol Sulfate (Proventil Hfa) 2 puff INH Q2H PRN PRN Reason: SOB &/or Wheezing Albuterol/Ipratropium (Duoneb) 3 ml NEB [id number] [facility] Last Admin: 10/15/18 14:51 Dose: 3 ml Alprazolam (Xanax) 0.25 mg PO BIDPRN PRN PRN Reason: Anxiety Last Admin: 10/14/18 20:04 Dose: 0.25 mg Aspirin (Ecotrin) 325 mg PO DAILY [facility] Last Admin: 10/15/18 09:19 Dose: 325 mg Atorvastatin Calcium (Lipitor) 10 mg PO HS [facility] Last Admin: 10/14/18 20:04 Dose: 10 mg Azithromycin (Zithromax) 250 mg PO DAILY [facility] Stop: 10/19/18 09:01 Calcium Carbonate (Tums) 1,000 mg PO Q4H PRN PRN Reason: Heartburn or Indigestion Diphenhydramine HCl (Benadryl) 25 mg PO Q6H PRN PRN Reason: Itching & Insomnia Last Admin: 10/14/18 20:04 Dose: 25 mg Famotidine (Pepcid) 20 mg PO BID [facility] Last Admin: 10/15/18 09:19 Dose: 20 mg Guaifenesin (Mucinex) 600 mg PO Q12HR [facility] Last Admin: 10/15/18 09:19 Dose: 600 mg Guaifenesin (Robitussin Sf) 200 mg PO Q4H PRN PRN Reason: Cough Nitroglycerin (Nitrostat) 0.4 mg PO Q5MIN PRN PRN Reason: Chest Pain Ondansetron HCl (Zofran Odt) 4 mg PO Q6H PRN PRN Reason: Nausea/Vomiting Ondansetron HCl (Zofran) 4 mg IVP Q6H PRN PRN Reason: Nausea/Vomiting Polyethylene Glycol (Miralax) 17 gm PO DAILY [facility] Last Admin: 10/15/18 09:19 Dose: 17 gm Prednisone (Prednisone) 40 mg PO QAM-[facility] Saccharomyces Boulardii (Florastor) 250 mg PO DAILY [facility] Last Admin: 10/15/18 09:19 Dose: 250 mg Senna/Docusate Sodium (Senokot S) 2 tab PO BID PRN PRN Reason: Constipation Sodium Chloride (Flush - Normal Saline) 10 ml IVF PRN PRN PRN Reason: Saline Flush Tamsulosin HCl (Flomax) 0.4 mg PO [facility] Last Admin: 10/14/18 20:04 Dose: 0.4 mg
--- NOTE | 2018-10-15 16:59 | PDOC.CTH ---
Cardiology Progress Note - Subjective Breathing slowly getting better. - Objective Vital Signs Temp Pulse Resp BP Pulse Ox 10/15/18 15:41 97.9 F 105 H 20 130/78 92 L 10/15/18 14:51 93 16 94 L 10/15/18 12:33 98.3 F 101 H 19 124/77 96 10/15/18 10:40 98 16 92 L 10/15/18 07:36 94 L 10/15/18 07:35 89 16 94 L 10/15/18 07:25 97.9 F 84 16 126/82 95 Admit Weight 125 lb 4.8 oz Weight 127 lb 4.8 oz 10/14/18 10/15/18 10/16/18 06:59 06:59 06:59 Intake Total 560 840 Output Total 1725 950 Balance -1165 -110 - Physical Examination General/Neuro: alert & oriented x3, NAD Neck: no JVD present Lungs: unlabored respirations, other: (decreased breath sounds. ) Heart: RRR Abdomen: NT/ND Extremities: other: (no edema) - Telemetry Telemetry Rhythm: S Tach - Labs Result Diagrams: 10/13/18 07:05 10/14/18 04:05 Troponin/CKMB CK-MB (CK-2) 10.3 ng/mL (0-6.6) H* 10/14/18 04:05 Troponin I 0.341 ng/mL (< 0.028) H* 10/14/18 04:05 - Assessment/Plan 1. COPD with acute exacerbation. 2. NSTEMI, possible type 2 CA. 3. Bronchitis. 4. Mild LV dysfunction PLAN: - Continue conservative therapy for now. He is not having chest pain and symptoms improving with pulmonary therapies. - EF at 45-50%, images not great on echo. - He tells me even if he is able to lay flat he would prefer to be conservative for now. - Low dose ACEI to be started. BB contraindicated with advanced COPD. - Will sign off. Please call with any questions. - Follow up in office in 1 month.
[2018-10-15] MEDS: Atorvastatin Calcium 10 MG TAB PO SCH (20:41)
[2018-10-15] MEDS: Tamsulosin HCl 0.4 MG CAP PO SCH (20:42)
[2018-10-15] MEDS ORDERED: Levalbuterol HCl 0.63 MG/3 ML NEB NEB SCH (22:30)
[2018-10-16] MEDS: Levalbuterol HCl 1.25 MG/0.5 ML NEB NEB SCH ×6 (03:27→22:22)
[2018-10-16] MEDS: Sodium Chloride For Inhalation 0.9% 3 ML NEB NEB SCH ×6 (07:50→22:23)
[2018-10-16] MEDS: Polyethylene Glycol 3350 17 GM Packet PO SCH (08:11)
[2018-10-16] MEDS: Aspirin 325 mg Enteric Coated Tablet PO SCH (08:14)
[2018-10-16] MEDS: Azithromycin 250 MG TAB PO SCH (08:14)
[2018-10-16] MEDS: Famotidine 20 MG TAB PO SCH ×2 (08:14→19:39)
[2018-10-16] MEDS: predniSONE 20 MG TAB PO SCH (08:14)
[2018-10-16] MEDS: Saccharomyces boulardii 250 MG CAP PO SCH (08:15)
[2018-10-16] MEDS: guaiFENesin ER 600 MG TAB PO SCH ×2 (08:15→19:39)
[2018-10-16] MEDS ORDERED: Lisinopril 2.5 MG TAB PO SCH (09:00)
--- NOTE | 2018-10-16 11:22 | EKG ---
Test Reason : Blood Pressure : / mmHG Vent. Rate : 122 BPM Atrial Rate : 122 BPM P-R Int : 116 ms QRS Dur : 078 ms QT Int : 314 ms P-R-T Axes : 086 083 077 degrees QTc Int : 447 ms Sinus tachycardia with occasional Premature ventricular complexes Nonspecific ST abnormality Abnormal ECG Confirmed by PRATIK CHAIDEZ, CATARINA Lockwood ([id number]), editor managing newspaper CEE ANNE ([id number]) on 10/16/2018 11:22:12 AM Referred By: Confirmed By:CATARINA CHRISTIE MD
--- NOTE | 2018-10-16 13:00 | PDOC.PN ---
- Subjective Encounter Start Date: 10/16/18 (f/u acute hypoxic resp failure) Encounter Start Time: 12:58 Subjective: Pt asking to go home. Reports some feeling lightheaded with ambulation -: and short of breath. Denies chest pain/n/v/abd pain - Objective Resuscitation Status - Order Detail: 10/13/18 14:25 Resuscitation Status Routine Resuscitation Status: FULL: Full Resuscitation Vital Signs & Weight: Vital Signs (12 hours) Temp Pulse Resp BP BP Pulse Ox 10/16/18 11:59 98.1 F 100 20 98/60 93 L 10/16/18 10:45 85 18 93 L 10/16/18 08:11 107 H 10/16/18 08:10 98.4 F 107 H 22 H 100/64 92 L 10/16/18 07:47 81 18 92 L 10/16/18 04:00 99.3 F 111 H 20 127/84 91 L 10/16/18 03:27 111 H 18 91 L Weight Admit Weight 125 lb 4.8 oz Weight 120 lb 3.2 oz I&O: 10/15/18 10/16/18 10/17/18 06:59 06:59 06:59 Intake Total 840 1125 Output Total 950 950 Balance -110 175 Result Diagrams: 10/13/18 07:05 10/14/18 04:05 EKG Reviewed by me: Yes (tele - 16 beats PAT, sinus 90-130's) Phys Exam - Physical Examination Constitutional: NAD Respiratory: no wheezing, no rales, no rhonchi distant lung sounds Cardiovascular: RRR, no significant murmur distant heart sounds Gastrointestinal: soft, non-tender, no distention, positive bowel sounds Musculoskeletal: no edema Neurological: non-focal Dx/Plan (1) Acute respiratory failure Code(s): J96.00 - ACUTE RESPIRATORY FAILURE, UNSP W HYPOXIA OR HYPERCAPNIA Status: Acute Qualifiers: Respiratory failure complication: hypoxia Qualified Code(s): J96.01 - Acute respiratory failure with hypoxia (2) NSTEMI (non-ST elevated myocardial infarction) Code(s): I21.4 - NON-ST ELEVATION (NSTEMI) MYOCARDIAL INFARCTION Status: Acute (3) BPH (benign prostatic hyperplasia) Code(s): N40.0 - BENIGN PROSTATIC HYPERPLASIA WITHOUT LOWER URINRY TRACT SYMP Status: Chronic Qualifiers: Lower urinary tract symptom presence: symptoms present (4) Dyslipidemia Code(s): E78.5 - HYPERLIPIDEMIA, UNSPECIFIED Status: Chronic (5) Hyponatremia Code(s): E87.1 - HYPO-OSMOLALITY AND HYPONATREMIA Status: Acute - Plan * Low bp's and pt is sx - d/c low dose leo-i, encourage PO intake and monitor. Do not recommend d/c to home given current bp's * hypoxia with ambulation - qualifies for home oxygen - case management consult * recheck labs today * continue current orders - pt will require prednisone taper, antibiotics after discharge and close f/u with Dr. Ochoa his pcp * * dvt prophy - scds * gi prophy - famotidine due to steroids * code status full * * reviewed plan of care with patient/family, no questions or further needs at end of eval..
[2018-10-16 13:11] LABS: #Basophils 0.1 thou/uL (0.0-0.2); #Lymphocytes 0.6 thou/uL (1.20-3.40); #Monocytes 0.6 thou/uL (0.11-0.59); #Neutrophils 14.2 thou/uL (1.40-6.50); %Basophils 0.6 % (0.0-1.0); %Eosinophils 0.1 % (0.0-10.0); %Lymphocytes 3.7 % (21.0-51.0); %Monocytes 4.1 % (0.0-10.0); %Neutrophils 91.5 % (42.0-75.0); Hemoglobin 14.3 g/dL (14.0-18.0); Mean Corpuscular Hemoglobin 33.1 pg (27.0-31.0); Platelet Count 177 thou/uL (130-400); RBC Distribution Width 11.8 % (11.5-14.5); Red Blood Cell (RBC) Count 4.31 mill/uL (4.70-6.10); White Blood Cell (WBC) Count 15.5 thou/uL (4.8-10.8)
[2018-10-16 13:47] LABS: ALT (SGPT) 24 U/L (8-55); AST (SGOT) 26 U/L (5-34); Albumin 3.4 g/dL (3.4-4.8); Alkaline Phosphatase 62 U/L (40-150); Anion Gap 15 mmol/L (10-20); BUN (Urea Nitrogen) 20 mg/dL (8.4-25.7); Bilirubin, Total 0.8 mg/dL (0.2-1.2); Calc. Creatinine Clearance 50 mL/min (70-130); Calcium 8.5 mg/dL (7.8-10.44); Carbon Dioxide 26 mmol/L (23-31); Chloride 97 mmol/L (98-107); Estimated GFR-MDRD 68; Globulin 2.3 g/dL (2.4-3.5); Glucose 182 mg/dL (80-115); Magnesium 2.3 mg/dL (1.6-2.6); Potassium 4.2 mmol/L (3.5-5.1); Protein, Total 5.7 g/dL (5.8-8.1); Sodium 134 mmol/L (136-145)
--- NOTE | 2018-10-16 18:57 | PRG ---
DATE OF SERVICE: 10/16/2018 SUBJECTIVE: Lanny has no new complaints. He is still a little short of breath, says he is feeling better. OBJECTIVE: VITAL SIGNS: He is afebrile. Heart rate is 83, respiratory rate is 20, oximetry is 93% on room air, and blood pressure 109/62. LUNGS: Remarkable for faint wheezes. HEART: Regular rhythm. ABDOMEN: Soft. EXTREMITIES: Without clubbing, cyanosis, or edema. We had a long discussion about oxygen therapy. His is concerned that he might need oxygen because he desaturates slightly when he ambulates, but I have explained that there is no proven benefit to this. He is actually extremely active, does woodworking and tries to work on a daily basis to stay busy and stay in shape. He takes Spiriva and Symbicort normally. LABORATORY DATA: Shows white count 15.5, hemoglobin 14.3, platelets 177. Sodium 134, potassium 4.2, chloride 97, bicarb 26, BUN 20, creatinine 1.08. IMPRESSION: 1. Chronic obstructive pulmonary disease exacerbation. 2. Probable stress mediated troponin release. 3. Ejection fraction 45% to 50%, but technically this is a poor study, so this is probably not guaranteed to be accurate. 4. He has a followup with Dr. Dawkins in a month. He may be a candidate to go home in 24 to 48 hours if he continues to improve. He has been ambulating in the [place] and says he is doing much better than he was on presentation and he thinks he may be able to go home tomorrow. I have tried to answer all of his questions and all family questions. He was switched to Xopenex at 2 o'clock this morning. [facility], so this may not be paid for. We will continue to follow. Job ID: [id number]
[2018-10-16] MEDS: Tamsulosin HCl 0.4 MG CAP PO SCH (19:39)
[2018-10-16] MEDS: Atorvastatin Calcium 10 MG TAB PO SCH (19:39)
[2018-10-17] MEDS: Levalbuterol HCl 1.25 MG/0.5 ML NEB NEB SCH ×5 (02:37→18:22)
[2018-10-17] MEDS: Sodium Chloride For Inhalation 0.9% 3 ML NEB NEB SCH ×6 (02:37→21:44)
[2018-10-17 04:33] LABS: #Eosinphils 0.2 thou/uL (0.0-0.7); #Lymphocytes 1.6 thou/uL (1.20-3.40); #Neutrophils 6.7 thou/uL (1.40-6.50); %Basophils 0.5 % (0.0-1.0); %Eosinophils 2.4 % (0.0-10.0); %Lymphocytes 16.6 % (21.0-51.0); %Monocytes 10.3 % (0.0-10.0); %Neutrophils 70.3 % (42.0-75.0); Hemoglobin 13.5 g/dL (14.0-18.0); Mean Corpuscular HGB CONC 32.8 g/dL (32.0-36.0); Platelet Count 151 thou/uL (130-400); RBC Distribution Width 11.7 % (11.5-14.5); Red Blood Cell (RBC) Count 4.08 mill/uL (4.70-6.10); White Blood Cell (WBC) Count 9.6 thou/uL (4.8-10.8)
[2018-10-17 04:53] LABS: Anion Gap 12 mmol/L (10-20); BUN (Urea Nitrogen) 18 mg/dL (8.4-25.7); Calc. Creatinine Clearance 78 mL/min (70-130); Calcium 8.4 mg/dL (7.8-10.44); Carbon Dioxide 27 mmol/L (23-31); Chloride 98 mmol/L (98-107); Estimated GFR-MDRD Greater than 90; Glucose 125 mg/dL (80-115); Potassium 3.8 mmol/L (3.5-5.1); Sodium 133 mmol/L (136-145)
[2018-10-17] MEDS: Aspirin 325 mg Enteric Coated Tablet PO SCH (08:16)
[2018-10-17] MEDS: Saccharomyces boulardii 250 MG CAP PO SCH (08:16)
[2018-10-17] MEDS: predniSONE 20 MG TAB PO SCH (08:16)
[2018-10-17] MEDS: Azithromycin 250 MG TAB PO SCH (08:16)
[2018-10-17] MEDS: Famotidine 20 MG TAB PO SCH ×2 (08:16→20:23)
[2018-10-17] MEDS: guaiFENesin ER 600 MG TAB PO SCH (08:17)
[2018-10-17] MEDS: Polyethylene Glycol 3350 17 GM Packet PO SCH (08:18)
[2018-10-17] MEDS: ALPRAZolam 0.25 MG TAB PO PRN ×2 (08:37→20:23)
--- NOTE | 2018-10-17 09:56 | PDOC.PN ---
- Subjective Encounter Start Date: 10/17/18 (f/u COPD exac) Encounter Start Time: 09:54 Subjective: Pt reports coughing and feeling more short of breath at rest today. -: denies any cp/n/v/abd pain. Sats were 85% this morning on RA - Objective Resuscitation Status - Order Detail: 10/13/18 14:25 Resuscitation Status Routine Resuscitation Status: FULL: Full Resuscitation Vital Signs & Weight: Vital Signs (12 hours) Temp Pulse Resp BP BP Pulse Ox 10/17/18 07:28 84 22 H 92 L 10/17/18 07:25 98.4 F 102 H 20 118/66 93 L 10/17/18 03:33 97.6 F 73 18 115/63 91 L 10/17/18 02:37 80 12 10/16/18 23:14 97.3 F L 76 20 110/68 100 10/16/18 22:22 80 12 Weight Admit Weight 125 lb 4.8 oz Weight 122 lb 8 oz I&O: 10/16/18 10/17/18 10/18/18 06:59 06:59 06:59 Intake Total 1125 1460 240 Output Total 950 425 Balance 175 1035 240 Result Diagrams: 10/17/18 04:07 10/17/18 04:07 EKG Reviewed by me: Yes (tele - sinus 60-100's with pvc's) Phys Exam - Physical Examination Constitutional: NAD Respiratory: no rales, no rhonchi fair air movement, audible wheezing Cardiovascular: RRR, no significant murmur Gastrointestinal: soft, non-tender, positive bowel sounds Musculoskeletal: no edema Neurological: non-focal, moves all 4 limbs Psychiatric: normal affect Dx/Plan (1) Acute respiratory failure Code(s): J96.00 - ACUTE RESPIRATORY FAILURE, UNSP W HYPOXIA OR HYPERCAPNIA Status: Acute Qualifiers: Respiratory failure complication: hypoxia Qualified Code(s): J96.01 - Acute respiratory failure with hypoxia (2) NSTEMI (non-ST elevated myocardial infarction) Code(s): I21.4 - NON-ST ELEVATION (NSTEMI) MYOCARDIAL INFARCTION Status: Acute (3) BPH (benign prostatic hyperplasia) Code(s): N40.0 - BENIGN PROSTATIC HYPERPLASIA WITHOUT LOWER URINRY TRACT SYMP Status: Chronic Qualifiers: Lower urinary tract symptom presence: symptoms present (4) Dyslipidemia Code(s): E78.5 - HYPERLIPIDEMIA, UNSPECIFIED Status: Chronic (5) Hyponatremia Code(s): E87.1 - HYPO-OSMOLALITY AND HYPONATREMIA Status: Acute - Plan * * Low bp's resolved - low dose lisinopril d/c yesterday due to this. Monitor for sx associated with current bp's * * Hypoxia= continue oxygen supplementation. * Dyspnea - worse today and at rest. Reviewed orders and on steroids, azithromycin, xopenex q4h * pt on symbicort at home - add brovana and pulmicort nebs * Change guaifenesin to guaifenesin/dextromethorphan bid scheduled and tessneha reilly scheduled * monitor breathing - currently not a candidate for discharge to home. * form signed for home oxygen - case management to be contacted * hyponatremia - mild and stable - monitor * continue current orders - pt will require prednisone taper, antibiotics after discharge and close f/u with Dr. Ochoa his pcp * * dvt prophy - scds * gi prophy - famotidine due to steroids * code status full * * reviewed plan of care with patient/family, no questions or further needs at end of eval * pt desires discharge to home, however not currently due to dypsnea at rest. Will monitor with changes in meds above - anticipate another 24-48 hours.
[2018-10-17] MEDS ORDERED: Budesonide 0.5 MG/2 ML NEB INH SCH (10:00)
[2018-10-17] MEDS ORDERED: guaiFENesin/DM ER PO SCH (10:00)
[2018-10-17] MEDS ORDERED: Arformoterol 15 MCG/2 ML NEB NEB SCH (10:00)
[2018-10-17] MEDS: Arformoterol 15 MCG/2 ML NEB NEB SCH ×2 (10:38→18:21)
[2018-10-17] MEDS: Budesonide 0.5 MG/2 ML NEB INH SCH ×2 (10:39→18:21)
[2018-10-17] MEDS: Ipratropium Bromide 2.5 ml Neb NEB SCH ×3 (10:49→18:22)
[2018-10-17] MEDS: Benzonatate 100 MG CAP PO SCH ×2 (16:51→20:24)
--- NOTE | 2018-10-17 19:10 | PRG ---
DATE OF SERVICE: 10/17/2018 SUBJECTIVE: Sugar Ca did not feel well today, so he is not being discharged. His medications have been adjusted. OBJECTIVE: VITAL SIGNS: Blood pressure 110/68, heart rate is in the 70s, respiratory rate is 20, awakening from a nap. LUNGS: Remarkable for diffuse small wheezes. HEART: Regular rhythm. S1, S2 normal. ABDOMEN: Soft, nontender. LABORATORY DATA: Intake and outputs; positive 1035. White count 9.6, hemoglobin 13.5, platelets 151,000. Sodium 133, potassium 3.8, chloride 98, bicarb 27, BUN 18, creatinine 0.69. IMPRESSION: 1. Chronic obstructive pulmonary disease exacerbation, slowly improving. We will continue to follow. I would agree with keeping him in another day. 2. He continues on Xopenex with Brovana twice a day, prednisone, budesonide twice a day and Tessalon Perles. Job ID: [id number]
--- NOTE | 2018-10-17 20:06 | PDOC.EVN ---
Event Note - Event Note Event Note: Informed by the nurse of patient having difficulty breathing around 19:00 - sitting on side of bed. Pt evaluated just now - laying comfortably in bed, reports he is feeling better. He denies any pain. Exam - improved air movement compared to earlier today. No change to current meds - re-evalute tomorrow.
[2018-10-17] MEDS: Tamsulosin HCl 0.4 MG CAP PO SCH (20:23)
[2018-10-17] MEDS: guaiFENesin/DM ER PO SCH (20:23)
[2018-10-17] MEDS: Atorvastatin Calcium 10 MG TAB PO SCH (20:24)
[2018-10-18] MEDS: Sodium Chloride For Inhalation 0.9% 3 ML NEB NEB SCH ×3 (02:33→10:29)
[2018-10-18 04:50] LABS: Anion Gap 11 mmol/L (10-20); BUN (Urea Nitrogen) 13 mg/dL (8.4-25.7); Calc. Creatinine Clearance 81 mL/min (70-130); Calcium 8.2 mg/dL (7.8-10.44); Carbon Dioxide 27 mmol/L (23-31); Chloride 95 mmol/L (98-107); Estimated GFR-MDRD Greater than 90; Glucose 89 mg/dL (80-115); Potassium 4.4 mmol/L (3.5-5.1); Sodium 129 mmol/L (136-145)
[2018-10-18] MEDS: predniSONE 20 MG TAB PO SCH (08:50)
[2018-10-18] MEDS: Azithromycin 250 MG TAB PO SCH (08:51)
[2018-10-18] MEDS: Polyethylene Glycol 3350 17 GM Packet PO SCH (08:51)
[2018-10-18] MEDS: Aspirin 325 mg Enteric Coated Tablet PO SCH (08:51)
[2018-10-18] MEDS: guaiFENesin/DM ER PO SCH ×2 (08:51→20:43)
[2018-10-18] MEDS: Saccharomyces boulardii 250 MG CAP PO SCH (08:51)
[2018-10-18] MEDS: Famotidine 20 MG TAB PO SCH ×2 (08:51→20:44)
[2018-10-18] MEDS: Benzonatate 100 MG CAP PO SCH ×3 (08:51→20:42)
--- NOTE | 2018-10-18 10:08 | PDOC.PN ---
- Subjective Encounter Start Date: 10/18/18 (f/u dyspnea) Encounter Start Time: 10:06 Subjective: Pt reports he is ready to go home. Continues to cough. -: denies n/v/chest pain. - Objective Resuscitation Status - Order Detail: 10/13/18 14:25 Resuscitation Status Routine Resuscitation Status: FULL: Full Resuscitation Vital Signs & Weight: Vital Signs (12 hours) Temp Pulse Resp BP BP Pulse Ox 10/18/18 07:14 98.4 F 92 20 109/60 94 L 10/18/18 06:32 88 22 H 91 L 10/18/18 04:00 20 93 L 10/18/18 03:26 97.7 F 109 H 21 H 136/77 Weight Admit Weight 125 lb 4.8 oz Weight 122 lb 9.6 oz I&O: 10/17/18 10/18/18 10/19/18 06:59 06:59 06:59 Intake Total 1460 1480 Output Total 425 600 Balance 1035 880 Result Diagrams: 10/17/18 04:07 10/18/18 04:10 EKG Reviewed by me: Yes (tele - sinus 90-100's) Phys Exam - Physical Examination Constitutional: NAD Respiratory: no wheezing, no rales, no rhonchi fair air movement Cardiovascular: RRR, no significant murmur distant heart sounds Gastrointestinal: soft, non-tender, no distention, positive bowel sounds Musculoskeletal: no edema Neurological: non-focal, moves all 4 limbs Psychiatric: normal affect Dx/Plan (1) Hyponatremia Code(s): E87.1 - HYPO-OSMOLALITY AND HYPONATREMIA Status: Acute (2) Acute respiratory failure Code(s): J96.00 - ACUTE RESPIRATORY FAILURE, UNSP W HYPOXIA OR HYPERCAPNIA Status: Acute Qualifiers: Respiratory failure complication: hypoxia Qualified Code(s): J96.01 - Acute respiratory failure with hypoxia (3) NSTEMI (non-ST elevated myocardial infarction) Code(s): I21.4 - NON-ST ELEVATION (NSTEMI) MYOCARDIAL INFARCTION Status: Acute (4) BPH (benign prostatic hyperplasia) Code(s): N40.0 - BENIGN PROSTATIC HYPERPLASIA WITHOUT LOWER URINRY TRACT SYMP Status: Chronic Qualifiers: Lower urinary tract symptom presence: symptoms present (5) Dyslipidemia Code(s): E78.5 - HYPERLIPIDEMIA, UNSPECIFIED Status: Chronic - Plan * Hyponatremia worse today - check urine osm as pt appears euvolemic, and fluid restric * * Fever last night - unknown etiology, monitor, check CXR. He is currently on azithromycin for COPD exac * * Low bp's resolved - low dose lisinopril d/c 2 days ago due to this. Monitor for sx associated with current bp's * * Hypoxia= continue oxygen supplementation, has received oxygen for home use. * Dyspnea - improved, cleared by Dr. Justice for d/c to home from this perspective * continue current orders - pt will require prednisone taper, antibiotics after discharge and close f/u with Dr. Ochoa his pcp * * dvt prophy - scds * gi prophy - famotidine due to steroids * code status full * * reviewed plan of care with patient/family, no questions or further needs at end of eval * pt desires discharge to home - do not recommend with new onset fever and worsening hyponatremia * Reviewed xray- and focal opacity LLL - will add Rocephin as pt has not been on other abx, and request speech consult to eval for aspiration.
--- NOTE | 2018-10-18 10:18 | PRG ---
DATE OF SERVICE: 10/18/2018 SUBJECTIVE: This morning, he is doing better. Still coughing a large amount of purulent sputum, but he is afebrile. OBJECTIVE: VITAL SIGNS: Temperature 98.0, pulse 92, sats are 94% on a liter. CHEST: Decreased breath sounds. No wheezing. CARDIAC: Normal S1 and S2. No gallops. ABDOMEN: No masses. IMPRESSION: End-stage chronic obstructive pulmonary disease, bronchitis. PLAN: The patient can be probably discharged home on present medication. Follow up with the primary care physician. Apparently, he disqualified for low-flow O2. He is still on his nocturnal CPAP. Follow up with his primary relief salesperson, David. Job ID: [id number]
--- NOTE | 2018-10-18 10:34 | RAD ---
2 views of the chest: 10/18/2018 COMPARISON: 08/02/2010, 03/23/2018, and 10/13/2018 HISTORY: Fever, dyspnea FINDINGS: There is an oval lesion in the right upper lobe measuring 1.9 cm in craniocaudal dimension, unchanged when compared to the 2011 exam. There is a nodule in the left lung apex measuring 1 cm, also unchanged when compared to the 2011 exam. No pneumothorax. There is increased linear interstitial density and pulmonary hyperinflation, consist ent with COPD. On the lateral examination there is a inferior posterior focal area of airspace disease, which probab ly represents a posterior medial left basilar infiltrate. This is new when compared to the most recent prior 2 view examination of the chest, performed 03/23/2018. IMPRESSION: Focal opacity on lateral imaging within the posterior costophrenic angle, likely represen ting infectious pneumonitis/aspiration within the left lower lobe. Recommend follow-up examination following treatment to document resolution.
[2018-10-18] MEDS: cefTRIAXone\\ROCEPHIN 1 GM in Sodium Chloride 0.9% 100 ML IVPB SCH (12:24)
[2018-10-18] MEDS: Tamsulosin HCl 0.4 MG CAP PO SCH (20:44)
[2018-10-18] MEDS: ALPRAZolam 0.25 MG TAB PO PRN (20:44)
[2018-10-18] MEDS: Atorvastatin Calcium 10 MG TAB PO SCH (20:44)
[2018-10-18] MEDS ORDERED: Melatonin 3 MG TAB PO SCH (21:00)
[2018-10-19 06:22] LABS: #Eosinphils 0.1 thou/uL (0.0-0.7); #Lymphocytes 1.4 thou/uL (1.20-3.40); #Monocytes 1.1 thou/uL (0.11-0.59); #Neutrophils 9.3 thou/uL (1.40-6.50); %Basophils 0.2 % (0.0-1.0); %Eosinophils 0.6 % (0.0-10.0); %Lymphocytes 11.9 % (21.0-51.0); %Monocytes 9.1 % (0.0-10.0); %Neutrophils 78.2 % (42.0-75.0); Mean Corpuscular HGB CONC 32.5 g/dL (32.0-36.0); Mean Corpuscular Hemoglobin 32.7 pg (27.0-31.0); Mean Platelet Volume 6.9 fL (7.4-10.4); Platelet Count 203 thou/uL (130-400); RBC Distribution Width 11.4 % (11.5-14.5); Red Blood Cell (RBC) Count 3.97 mill/uL (4.70-6.10); White Blood Cell (WBC) Count 11.8 thou/uL (4.8-10.8)
[2018-10-19 06:45] LABS: Anion Gap 9 mmol/L (10-20); BUN (Urea Nitrogen) 9 mg/dL (8.4-25.7); Calc. Creatinine Clearance 87 mL/min (70-130); Calcium 8.6 mg/dL (7.8-10.44); Carbon Dioxide 29 mmol/L (23-31); Chloride 101 mmol/L (98-107); Estimated GFR-MDRD Greater than 90; Glucose 101 mg/dL (80-115); Sodium 135 mmol/L (136-145)
[2018-10-19] MEDS: Aspirin 325 mg Enteric Coated Tablet PO SCH (08:11)
[2018-10-19] MEDS: predniSONE 20 MG TAB PO SCH (08:11)
[2018-10-19] MEDS: Saccharomyces boulardii 250 MG CAP PO SCH (08:11)
[2018-10-19] MEDS: guaiFENesin/DM ER PO SCH (08:11)
[2018-10-19] MEDS: Famotidine 20 MG TAB PO SCH (08:11)
[2018-10-19] MEDS: Azithromycin 250 MG TAB PO SCH (08:12)
[2018-10-19] MEDS: Benzonatate 100 MG CAP PO SCH (08:12)
[2018-10-19] MEDS: Polyethylene Glycol 3350 17 GM Packet PO SCH (08:12)
--- NOTE | 2018-10-19 09:24 | RAD ---
XR Ba Swallow W/Speech Therap History: Dysphagia unspecified are 13.10. Feeding difficulties are 63.3 Comparison: None. Findings: Multiple consistency contrast was given to the patient via the speech pathologist. No aspir ation. Oropharyngeal phase is normal. Impression: Fluoroscopy for the speech pathologist. Please see report for details of the exam.
[2018-10-19] MEDS: ALPRAZolam 0.25 MG TAB PO PRN (10:06)
[2018-10-19] MEDS: cefTRIAXone\\ROCEPHIN 1 GM in Sodium Chloride 0.9% 100 ML IVPB SCH (10:44)
--- NOTE | 2018-10-19 10:55 | PRG ---
DATE OF SERVICE: 10/19/2018 SUBJECTIVE: This morning, he is better. He is still having difficulty breathing with minimal exertion, but no coughing or chest pain. OBJECTIVE: VITAL SIGNS: His oxygen saturations are about 93% to 94% on 2 L. His pulse is 80, his blood pressure is 130/70, and respirations 18. CHEST: Decreased breath sounds. No wheezing. CARDIAC: Normal S1 and S2. No gallops. ABDOMEN: Soft. IMPRESSION: 1. End-stage chronic obstructive pulmonary disease. 2. Dysphagia. 3. Bronchitis. PLAN: Continue PT, supportive care. He may benefit from outpatient pulmonary rehab program. Disposition as per the primary care physician. Job ID: [id number]
[2018-10-19 11:23] VITALS: BP 117/68; TEMP 97.9
[2018-10-19 11:48] VITALS: BMI 17.6
--- NOTE | 2018-10-19 19:37 | DIS ---
DATE OF ADMISSION: 10/13/2018 DATE OF DISCHARGE: 10/19/2018 CONSULTANTS: 1. Dr. Dawkins of cardiology. 2. Dr. Dai of Pulmonology. MEDICATIONS: Medications are reconciled at discharge. New medications are: 1. Prednisone 20 mg tablets 2 tablets daily for 2 days, then one tablet daily for 4 days, then 1/2 tablet daily for 8 days. 2. Cefdinir 300 mg one p.o. b.i.d. for 5 days. 3. Florastor 250 mg daily for 1 month. 4. Tessalon Perles 100 mg t.i.d. p.r.n. for cough. 5. Aspirin 325 mg daily. 6. Xanax 0.25 mg b.i.d. prn for anxiety- rx for 10 tablets only Prescriptions provided for all of the above for the patient. Medications to resume are: 1. Albuterol nebulizer as needed. 2. The patient 2 medications that he uses as needed in his nebulizer, he will continue that. (he is not aware of the name, suspect Sonia) 3. Spiriva 18 mcg daily. 4. Guaifenesin DM one tablet at night. 5. Benadryl 25 mg p.o. b.i.d. 6. Tamsulosin 0.4 mg at bedtime. 7. Zocor 20 mg at bedtime. 8. Symbicort 160/4.5 one inhalation b.i.d. 9. Albuterol nebulizer as needed. DISCONTINUED MEDICATIONS: Prednisone that he was on prior to this hospitalization. FOLLOWUP: 1. Followup is with Dr. Dai within a week to review this hospitalization and any further needs. Repeat chest x-ray as needed in a month to ensure resolution of the pneumonia. 2. Follow up with Dr. Dawkins in 3-4 weeks for further evaluation of the heart. 3. Follow up with Dr. Ochoa in 1-2 weeks to review this hospitalization and address any other health needs. FINAL DIAGNOSES: 1. Acute hypoxic respiratory failure. 2. Chronic obstructive pulmonary disease with exacerbation. 3. Type 2 myocardial infarction. SECONDARY DIAGNOSES: 1. Dyslipidemia. 2. BPH. 3. Hyponatremia. 4. Anemia, mild. HISTORY OF PRESENT ILLNESS: Mr. Ca is a 67-year-old male with progressive chest tightness, wheezing and shortness of breath over the prior 7-10 days. He was seen in the outpatient setting, started on prednisone without any significant improvement. He presented to the emergency room and hospitalist called for admission. HOSPITAL COURSE: The patient has been managed on steroids, antibiotics, nebulizer therapy for the COPD exacerbation. He has been followed by Pulmonology, who has been directing his care. He was managed on azithromycin, and Rocephin was added yesterday following a fever as well as confirmation of a pneumonia on chest x- ray. The patient has tolerated this well and his breathing has improved. He does remain hypoxic and does qualify for home oxygen which he has received. Cardiology has been consulted while here due to a troponin of 0.3, and concern for a type 2 [place]. In discussion with Dr. Dawkins, the patient desired conservative therapy. His EF was 45% to 50%, beta tracey was not initiated due to advanced COPD. He was started on a low-dose LU inhibitor, however, soon after had developed low blood pressures and was symptomatic. The LU inhibitor was discontinued. The patient will follow up in the outpatient setting within 3-[address] Dawkins for further evaluation of his heart. 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 The patient' s lowest sodium was 129, today on discharge, it was 135. He was placed on a fluid-restricted diet of 1.5 L per day and recommend that this continue in the outpatient setting. The patient overall improved, able to ambulate with oxygen support, does meet criteria for discharge to home. For concern of aspiration, Speech Therapy was consulted who recommends a diet that is nectar thick and mechanical soft, and a Burnett free water protocol outside of meals. The patient was educated on this. PHYSICAL EXAMINATION: VITAL SIGNS: Pulse is 100, respirations 24, saturations 95% on 3 L, blood pressure 127/72. GENERAL: He is awake, alert, responsive, able to speak in short phrases. He is not in apparent distress. LUNGS: He has fair air movement. No audible wheezing, rhonchi, or rales. HEART: Normal S1 and S2. Distant heart sounds. No audible murmurs. ABDOMEN: Soft with present bowel sounds. Nontender. Nondistended. EXTREMITIES: No edema. ODOM FINDINGS AND TEST RESULTS: Renal panel today; 135, 4.0, 101, 29, 9, 0.63, 101. LFTs: T-bilirubin 0.8, AST 26, ALT 24, alkaline phosphatase 62, total protein 5.7, albumin 3.4. Peak troponin was 0.341 with a CK-MB of 10.3. Urine osmolality 375. CBC; 10.8, 13.0, 40.0, 203. Modified barium swallow shows no aspiration. Chest x-ray on 10/18, shows focal opacity on lateral imaging within the posterior costophrenic angle, likely representing infectious pneumonitis or aspiration in the left lower lobe. Echocardiogram on 10/14, shows an EF of 45% to 50%, grade 1 of 3 diastolic dysfunction, dilated RV with reduced RV systolic function, moderately enlarged right atrium, mild MR and TR, and a small pericardial effusion without tamponade. Chest x-ray portable on 10/13, shows no evidence of acute cardiopulmonary disease, it does show presence of COPD. DIET: Heart healthy with a fluid restriction of 1.5 L per day, mechanical soft with nectar thick liquids with meals and Burnett free water protocol outside of that. ACTIVITY: As tolerated with oxygen. CODE STATUS: Full. DISCHARGE DISPOSITION: Home. Reviewed with the patient this hospitalization, the importance of followup, to seek care precautions. No questions or further needs at the end of evaluation. TOTAL TIME COORDINATING DISCHARGE: 45 minutes. Job ID: [id number] [id number]
== END 2018-10-19 13:46 | disposition home or self-care (01) | DRG 189 ==
LOC: ERS 06:47 → 2NO 11:22
PROVIDERS: ADMIT Internal Medicine; ATTEND Internal Medicine
DX: J96.01 Acute respiratory failure with hypoxia (principal); I21.4 Non-ST elevation (NSTEMI) myocardial infarction; J18.9 Pneumonia, unspecified organism; J44.1 Chronic obstructive pulmonary disease with (acute) exacerbation; I24.8 Other forms of acute ischemic heart disease; E22.2 Syndrome of inappropriate secretion of antidiuretic hormone; J44.0 Chronic obstructive pulmonary disease with (acute) lower respiratory infection; E78.5 Hyperlipidemia, unspecified; N40.0 Benign prostatic hyperplasia without lower urinary tract symptoms; R13.10 Dysphagia, unspecified; D75.89 Other specified diseases of blood and blood-forming organs; G47.33 Obstructive sleep apnea (adult) (pediatric); J40 Bronchitis, not specified as acute or chronic; D64.9 Anemia, unspecified; Z87.891 Personal history of nicotine dependence; Z87.01 Personal history of pneumonia (recurrent)
CPT/HCPCS: 36415; 71045; 71046; 74230; 80048; 80053; 82553; 83735; 83880; 83935; 84484; 85025; 87070; 87205; 93005; 93306; 94640; 96361; 96374; J0456; J0696; J1940; J2920; J2930; J3490; J7050; J7512; J7612; J7614; J7620; J7626; Q0163